=== PATIENT | male | born 1925 | race Caucasian/White ===

== ENCOUNTER 2017-10-19 09:31 | Inpatient (IN) | payer MEDICARE, OTHER ==
[2017-10-19] MEDS ORDERED: Lactated Ringers 1,000 ML IV SCH (10:30)
[2017-10-19] MEDS ORDERED: Take Home: Albuterol 6.7 GM Inhaler, 1 Inhaler Pack INH PRN (11:21)
[2017-10-19] MEDS ORDERED: Iopamidol 612 MG/ML 100 ML Bottle IVPUSH ONE (11:31)
[2017-10-19] MEDS: Oseltamivir 30 MG Cap PO SCH ×2 (12:03→19:51)
[2017-10-19] MEDS: Heparin Sodium 5,000 Units/ML Vial SUBCUT SCH ×2 (12:03→19:51)
[2017-10-19] MEDS: Sodium Chloride 0.9% 1,000 ML IV SCH (13:30)
[2017-10-19] MEDS: Levofloxacin/Dextrose 5%-Water 500 MG in Premix Bag 1 BAG IV SCH (13:30)
[2017-10-19] MEDS: Albuterol 0.083% 2.5 MG/3 ML Neb Soln NEB PRN ×2 (13:38→19:58)
--- NOTE | 2017-10-19 17:59 | HP ---
CHIEF COMPLAINT: Weakness with cough. HISTORY OF PRESENT ILLNESS: The patient is an 89-year-old male who presents to the clinic this morning, brought in by family. He has been having a sore throat, swollen glands on his neck. He woke up at 1:30 this morning with symptoms. His spouse is in the hospital with influenza A. to note, the patient was recently hospitalized at [facility] on 09/16/2017 to 09/19/2017 with bronchopneumonia. He has had problems with low potassium and weakness. He is also having worsening cognitive dysfunction. He had been treated at that time with Rocephin, Zithromax, not placed on steroids. He had been placed on Dulera when he was in the hospital as he normally is on Symbicort at home. He was given IV hydration, had gotten much better quite quickly. He was also having some problems with urination and forgetfulness. When he was seen recently in the clinic on 10/12/2017, we had increased his dose of Flomax. However, he only took 1 night as he did become a little bit more weaker and dizzier. The patient is somewhat of a vague historian. His is not able to accompany him, but daughter is present. MEDICATIONS: He is currently on Flomax 0.4 mg 2 pills a day, albuterol MDI 2 puffs every 4 hours as needed, allopurinol 300 mg 1 pill daily, Levaquin 100 mcg 1 pill a day, Symbicort 80/4.5 two puffs twice a day (he has been taking it more often) simvastatin 40 mg 1 pill a day, Plavix 75 mg 1 pill a day, lutein 20 mg 1 pill a day, Bilberry 60 mg capsules 1 pill a day, ferrous sulfate 325 one pill a day, multivitamin 1 pill a day, aspirin 81 mg 1 pill a day. ALLERGIES: None known. PAST MEDICAL HISTORY: He has had hypertension. He has mild intermittent asthma without complications. Peak flow meters have been around 280. He has had monoclonal gammopathy of undetermined significance. He has had coronary artery disease. Angiogram done in 2008. He had a stent to his LAD. RCA had IV ultrasound moderate disease. PTCA via drug-eluting stent in 2008 at [facility]. In September 2015, he had anemia mild, so his Plavix was stopped. On 12/25/2015, cardiology did resume his Plavix. He has had chronic kidney disease, panlobular emphysema, nonrheumatic mitral valve stenosis. Last echocardiogram on 08/24/2016, ejection fraction was 55%, mild diastolic dysfunction, mild mitral stenosis. He had cognitive dysfunction on 10/09/2016. He had vague answer difficulty remembering. On 10/12/2017, mini-mental status exam had 25/30 with no short-term memory recall. He has set up a head CT as well as ultrasound which is pending. He has had hypothyroidism and high cholesterol. He has had kidney stones 30 to 40 years ago, questionable uric acid stone. He has had some knee pain, injured in 2012. He has had balance problem noted since 2012. On 07/2016, he has declined physical therapy or use of a cane. He had a biceps tendon rupture 2013. He has had adenomatous colon polyps by flexible sigmoidoscopy back in 2004. He has had chronic diarrhea. He refuses further colonoscopies. He has been seen by Dr. Jean since 2009. He has had BPH. He has been on Flomax for years dose increased attempt on 09/2017 with side effects. He has had some macular degeneration. He has had a central retinal vein occlusion. He has had cataracts. He has had cold sores on his face. He has had gout. PAST SURGICAL HISTORY: He has had PTCA in 2008 with stent x1 of his RCA. He has had retinal vein occlusion surgery. He has had cataracts, left eye. He has had an inguinal hernia repair. He has had a septoplasty of his nose. FAMILY MEDICAL HISTORY: Mother has had stomach cancer. Father had hypertension, encephalitis, and CVA. Sister has had asthma, respiratory problems. SOCIAL HISTORY: He is . 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 He had been a former smoker. He quit in 1975, prior to that he had smoked a pack a day. I am not certain what his pack-year history use. Alcohol: He does not consume alcohol. REVIEW OF SYSTEMS: He has had a little bit of weakness. He did have some nausea after coughing. Does have a cough that is chronic form. He is slightly forgetful. Denies abdominal pain. He has had diarrhea in the past. He has had problems with having to void frequently at night. His legs feel weak. Skin no rashes. Weight did go down 5 lbs from last week. Hard of hearing. Sore lymph glands on neck. No allergies. Mood is good. No bruising. OBJECTIVE: VITAL SIGNS: Show that his weight is 168 pounds, down 5 pounds from a week ago. Blood pressure is 114/50, temperature is a 100.7, pulse is 98, sats are 93%. GENERAL: The patient does appear somewhat weak, unsteady when he does transfers from the chair to the table. His voice is raspy. HEENT: Tympanic membranes are normal bilaterally. Pharynx reveals slight dryness noted to mucous membranes questioning minimal erythema of his uvula and soft palate. Pupils are equal and react to light. NECK: Some tender submental lymphadenopathy, not very impressive. HEART: Regular rate and rhythm. LUNGS: Diminished breath sounds with occasional crackles on the right base. ABDOMEN: Bowel sounds are present. Soft, no hepatosplenomegaly. EXTREMITIES: Slender, thin. The patient walks slightly stooped. PSYCHIATRIC: Patient is slightly forgetful, somewhat vague with history. NEUROLOGICAL: Needs assist to get on exam table due to weaness. Reflexes were 1 + symmetric. SKIN: No rashes. IMPRESSION: 1. Pneumonitis. Expect possibly influenza A pneumonitis due to exposure from with recent acute acquired pneumonia. 2. Chronic obstructive pulmonary disease. 3. Cognitive dysfunction. 4. Dehydration. 5. Benign prostatic hyperplasia. PLAN: The patient will be admitted to acute care as he lives over 30 miles from the hospital and would be living home alone. He will have IV resuscitation of fluids. We will place him on medically on a Tamiflu because of exposure to his and probable influenza A pneumonia. We will check lab work on patient. We will hold his Plavix and aspirin, and we will place him on heparin for DVT prophylaxis. LABORATORY DATA: His lab work came back after he had been hospitalized, which showed his influenza A was negative. White blood cell count 8.9, hemoglobin 13.6, MCV 101.7, platelets 245, with 73 segs, 3 bands, 18 lymphocytes, 5 monocytes, 1 blasts, 1% anisocytosis. Blood gases on room air showed pH 7.42, pCO2 36, PO2 of 71, bicarb 25, and sats are 95% on room air. Sodium was 139, potassium 3.6, creatinine 1.4, BUN 19, GFR 48, glucose 164. AST 29, ALT 42, alkaline phosphatase 86. CRP 3.8, albumin is 3.3. Even though it was influenza A negative, we will still empirically treat him because his was positive. Also, we will resume Zithromax. We will place him on some duo nebs as well to help with lung function. The patient is codelevel 2 status but do not resuscitate, do not intubate. His chest x-ray did not show any impressive infiltrates. However, he had a fair amount air noted throughout his colon, so possibly an ileus, so he will be set up for a CT scan of his abdomen as well. We will order actually some Levaquin for him. GM10/19/2017 12:50:07 MODL: 10/19/2017 17:41:10 /[id number]
[2017-10-19] MEDS: SYMBICORT INH SCH (19:52)
[2017-10-19] MEDS ORDERED: Formoterol/Mometasone 100-5 MCG 8.8 GM Inhaler IH SCH (20:00)
[2017-10-19] MEDS: diphenhydrAMINE 25 MG Cap PO PRN (20:40)
[2017-10-20] MEDS: Sodium Chloride 0.9% 1,000 ML IV SCH ×3 (00:44→21:42)
[2017-10-20] MEDS: Levothyroxine 100 MCG Tab PO SCH (06:43)
[2017-10-20] MEDS: SYMBICORT INH SCH ×2 (06:43→21:03)
[2017-10-20] MEDS: Albuterol 0.083% 2.5 MG/3 ML Neb Soln NEB PRN ×3 (07:20→21:03)
[2017-10-20] MEDS: Oseltamivir 30 MG Cap PO SCH (07:26)
[2017-10-20] MEDS: Allopurinol 300 MG Tab PO SCH (07:26)
[2017-10-20] MEDS: Ferrous Sulfate 325 MG Tab PO SCH (07:26)
[2017-10-20] MEDS: Tamsulosin 0.4 MG Cap.ER PO SCH (07:27)
[2017-10-20] MEDS: Heparin Sodium 5,000 Units/ML Vial SUBCUT SCH ×2 (07:27→21:02)
[2017-10-20] MEDS ORDERED: Magnesium Hydroxide 400 MG/5 ML Susp 30 ML Cup PO PRN (08:41)
[2017-10-20] MEDS: Metoprolol Succinate 25 MG Tab.ER PO SCH (09:32)
[2017-10-20] MEDS: Docusate Sodium 100 MG Cap PO SCH (09:33)
--- NOTE | 2017-10-20 10:12 | PN ---
Progress Note for URIEL FLORES Date: 10/20/2017 Room #: VM.219 SUBJECTIVE: The patient is feeling a little bit better today, a little bit more strength. He says he is breathing. He started to cough a little bit more today, but he does not feel short of breath. He comments that his bowels have not worked for the past few days at home. He is eager to start to work with physical therapy. OBJECTIVE: Vital Signs: His temperature has been afebrile since admission, it is 36.9 this morning. His pulse is 80, blood pressure is 155/100, respiratory rate is 22, sats are 95% on 1 L. SKIN: Casar, warm, and dry. LUNGS: Reveal inspiratory crackles on bases bilaterally. HEART: Regular rate and rhythm. ABDOMEN: Slightly distended. Bowel sounds are present. It is soft. LOWER EXTREMITIES: No edema. LABORATORY DATA: His lab today shows his white blood cell count stable at 6.2, hemoglobin 13.2, platelets are 226 with 12% monocytes noted. Sodium is 140, potassium 3.8, creatinine has improved to 1.3, GFR has improved to 52, BUN is 17. His CRP on admission was 3.8, elevated now. Today it has gone up to 6.6. Urinalysis was checked last evening and it was normal. IMPRESSION: 1. Pneumonia. Either recurrence of community-acquired pneumonia. 2. Exposure to influenza A that his is hospitalized currently with it. The patient tested negative. 3. Ileus, most likely secondary to influenza, however, rule out obstructing lesion. 4. Monoclonal gammopathy of undetermined significance. 5. Chronic obstructive pulmonary disease. 6. Cognitive dysfunction. PLAN: We will continue IV fluids on the patient, however, we will cut down on the rate. We will have Physical Therapy work with him for strengthening. We will give him some milk of magnesia to help stimulate his bowels as well as place him on Colace daily. To note, his blood pressure is slightly elevated right now. It is not clear if he had been missing his pills at home for a few days. Actually to note, the patient is not currently on any medicines for hypertension. So if his blood pressure would stay elevated, then he may need to be placed on medications for blood pressure. The patient has had a previous history of coronary artery disease and so he should actually be on a beta- joann to help prevent with angina ever though he has COPD. He has asthma, so we will add cardioselective beta joann to help with heart function of carvedilol. GM10/20/2017 08:48:57 MODL: 10/20/2017 09:16:30 /[id number]
[2017-10-20] MEDS: Levofloxacin/Dextrose 5%-Water 500 MG in Premix Bag 1 BAG IV SCH (12:20)
[2017-10-20] MEDS: diphenhydrAMINE 25 MG Cap PO PRN (21:42)
[2017-10-21] MEDS: Levothyroxine 100 MCG Tab PO SCH (07:04)
[2017-10-21] MEDS: SYMBICORT INH SCH (07:09)
[2017-10-21] MEDS: Albuterol 0.083% 2.5 MG/3 ML Neb Soln NEB PRN ×2 (07:40→11:15)
[2017-10-21] MEDS: Sodium Chloride 0.9% 1,000 ML IV SCH (07:58)
[2017-10-21] MEDS: Ferrous Sulfate 325 MG Tab PO SCH (07:59)
[2017-10-21] MEDS: Tamsulosin 0.4 MG Cap.ER PO SCH (07:59)
[2017-10-21] MEDS: Docusate Sodium 100 MG Cap PO SCH (07:59)
[2017-10-21] MEDS: Metoprolol Succinate 25 MG Tab.ER PO SCH (07:59)
[2017-10-21] MEDS: Heparin Sodium 5,000 Units/ML Vial SUBCUT SCH ×2 (08:00→22:42)
[2017-10-21] MEDS: Allopurinol 300 MG Tab PO SCH (08:00)
[2017-10-21] MEDS: Oseltamivir 30 MG Cap PO SCH (08:00)
--- NOTE | 2017-10-21 09:17 | PN ---
Progress Note for URIEL FLORES Date: 10/21/2017 Room #: VM.219 SUBJECTIVE: The patient is weak, but feeling a little bit better. He still does have a little bit of a cough. His bowels were active yesterday. He is otherwise pleasantly forgetful. He did have a CT scan done yesterday, which has showed cholelithiasis, mild thickening of his abdominal wall, but no obstructive lesions present. Yesterday, he had been started on metoprolol, because his blood pressure had been running higher. OBJECTIVE: Vital Signs: His blood pressure today is 176/71, but had been yesterday evening in 146/84; pulse is 82, respiratory rate is 18, and saturations 94% on room air. General: He is alert, conversive. Heart: Regular rate and rhythm. Lungs: Have some inspiratory crackles on bases. Abdomen: Bowel sounds are present. Soft, nontender. Extremities: Lower extremities, no edema. LABORATORY DATA: His proBNP was done, it was 1723. We do not have a baseline on him. His TSH was normal at 3.171. Urine tested yesterday was normal. Sputum cultures growing gram-negative bacilli. IMPRESSION: 1. Pneumonia. 2. Chronic obstructive pulmonary disease. 3. Coronary artery disease. 4. Hypertension. 5. Weakness, improving. 6. Cholelithiasis. 7. Cognitive dysfunction. PLAN: We will switch his Levaquin to oral today. We will saline lock once his current IV fluids are in. To note, his chest x-ray appeared stable today as well as his abdominal flat and upright x-ray shows a fair amount air throughout colon, felt to be more of an ileus as he is eating and nontender. GM10/21/2017 08:50:43 MODL: 10/21/2017 09:10:19 /[id number]
[2017-10-21] MEDS: Levofloxacin 500 MG Tab PO SCH (09:30)
[2017-10-21] MEDS ORDERED: ALPRAZolam 0.25 MG Tab PO PRN (12:40)
[2017-10-21] MEDS: Budesonide 0.25 MG/2 ML Neb Susp NEB SCH (22:41)
[2017-10-21] MEDS: diphenhydrAMINE 25 MG Cap PO PRN (22:42)
[2017-10-21] MEDS: Arformoterol 15 MCG/2 ML Neb Soln NEB SCH (22:42)
[2017-10-21] MEDS: Sodium Chloride 0.9% 10 ML Syringe FLUSH PRN (22:45)
[2017-10-22] MEDS: Levothyroxine 100 MCG Tab PO SCH (06:20)
[2017-10-22] MEDS: Allopurinol 300 MG Tab PO SCH (07:56)
[2017-10-22] MEDS: Docusate Sodium 100 MG Cap PO SCH (07:56)
[2017-10-22] MEDS: Ferrous Sulfate 325 MG Tab PO SCH (07:56)
[2017-10-22] MEDS: Tamsulosin 0.4 MG Cap.ER PO SCH (07:56)
[2017-10-22] MEDS: Heparin Sodium 5,000 Units/ML Vial SUBCUT SCH (07:57)
[2017-10-22] MEDS: Oseltamivir 30 MG Cap PO SCH (07:57)
[2017-10-22] MEDS: Metoprolol Succinate 25 MG Tab.ER PO SCH (07:57)
[2017-10-22] MEDS: Budesonide 0.25 MG/2 ML Neb Susp NEB SCH (08:04)
[2017-10-22] MEDS: Arformoterol 15 MCG/2 ML Neb Soln NEB SCH (08:04)
[2017-10-22] MEDS: Levofloxacin 500 MG Tab PO SCH (08:42)
[2017-10-22] MEDS: Sodium Chloride 0.9% 10 ML Syringe FLUSH PRN (08:43)
--- NOTE | 2017-10-22 09:20 | PN ---
Progress Note for URIEL FLORES Date: 10/22/2017 Room #: VM.219 SUBJECTIVE: He is feeling better. He still does have a little bit of a cough. He does feel that the nebulizers are working better. Nurses report that also those work better as well. OBJECTIVE: VITAL SIGNS: His temperature is 36.6, blood pressure is 138/84, pulse is 77, respiratory rate 22, sats are 93 on room air. GENERAL: He appears alert and stronger. HEART: Regular rate and rhythm. LUNGS: Have some crackles on the left base, this is more than the right. ABDOMEN: Soft. EXTREMITIES: No edema. LABORATORY DATA: His white blood cell count is same at 6.2, hemoglobin 13.0. Sodium is 141, potassium 3.8, creatinine 1.2, and the GFR is 40. LFTs are normal. His albumin is just slightly diminished at 2.7. His chest x-ray yesterday had shown no infiltrate. The abdominal x-ray showed significant bowel distention, again seen here as I look at the x-ray. So it did show some mild progressive basilar infiltrate present. No effusions noted. His sputum has gram-negative coccobacilli, which has been sent away for identification. IMPRESSION: 1. Community-acquired pneumonia. 2. Exposure to influenza A, he was ruled negative. 3. Chronic obstructive pulmonary disease exacerbation. 4. Weakness. 5. Mild cognitive dysfunction. 6. Mild anxiety. PLAN: Because the Xanax did help him at home, we will also send him home with some Xanax. We do feel that the patient is able to go home today as he will feel more comfortable being around his . He has been on oral antibiotics. We will send him home on DuoNeb and we will have patient return to see me in a week's time. To note, his Plavix and aspirin have been held as he was placed on heparin for DVT prophylaxis. He will be able to resume that when he goes home. GM10/22/2017 08:44:22 MODL: 10/22/2017 09:15:43 /[id number]
--- NOTE | 2017-10-22 10:15 | DISCH ---
PRIMARY DIAGNOSES: 1. Community-acquired pneumonia, gram negative coccobacilli, identity is still pending. 2. Exacerbation of chronic obstructive pulmonary disease with exposure to influenza A. 3. Weakness. 4. Cognitive dysfunction. 5. Hypertension. 6. History of coronary artery disease. 7. Benign prostatic hyperplasia. 8. Ileus. SUMMARY OF HISTORY AND PHYSICAL: The patient is an 89-year-old male who presented to the clinic, feeling weak, coughing. His had been admitted with influenza A, so is concerned that he may have influenza A. He also has been noted to have some increased forgetfulness. He had been hospitalized about a month ago with pneumonia and had been treated with Rocephin and Zithromax at that time. The patient is on Symbicort normally at home. However, his use of inhalers is somewhat questionable as well as albuterol. Recently, his Flomax had been increased because of problems with nocturia, but that possibly may have made him more confused and weaker. To note, the patient is somewhat anxious as well. PHYSICAL EXAMINATION: Vital Signs: On admission, his weight had been down 5 pounds from a month ago at 168, blood pressure is 114/50, temperature is a 100.7, pulse 98, sats are 93%. Lungs: Had diminished breath sounds on bases with occasional crackles at right base. Abdomen: Bowel sounds present, soft, nontender. Neurologic: He is pleasantly confused. LABORATORY DATA: That came back from the hospital shows white blood cell count 8.9, hemoglobin 13.6, MCV 101.7, platelets 245, with 73 segs, 3 bands, 18 lymphocytes. Blood gases showed pH 7.42, pCO2 36, PO2 71, bicarb 25, sats 95%. Sodium 139, potassium 3.6, creatinine 1.4, BUN 19, GFR 48, glucose 164. ALT 29, AST 42, alkaline phosphatase 86, CRP 3.8, albumin 3.3. SUMMARY OF HOSPITAL COURSE: The patient was checked for influenza A, it was negative, so he was switched from Tamiflu twice a day to once a day. He was placed on Levaquin IV. Also, he was switched to nebulizers of Brovana and Pulmicort, which he seemed to take better than his Symbicort. His abdomen in flat and upright did show much air present, so then he had undergone a CT scan of his abdomen which showed cholelithiasis which is asymptomatic, mild thickening of wall of colon, but otherwise no masses noted. He still continued to cough. He received physical therapy for strengthening. The patient had followup chest x-ray which did show some basilar infiltrate. By 10/22/2017, his white blood cell count was 6.2, hemoglobin 13.0, sodium 141, potassium 3.8, creatinine 1.2, BUN 19, GFR 40. LFTs were normal. Albumin did drop to 2.7. To note his proBNP done on 10/21/2017 was 1729. He did have a CRP on 10/20/2017, which was 6.6. His thyroid was checked and was normal at 3.17. Urinalysis came back normal. By 10/22/2017, he was doing much better. He was given some Xanax to help him with sleep. To note, the patient's blood pressure was elevated while hospitalized. It was up to 174, so he was started on metoprolol as he does have a history of coronary artery disease. His blood pressure on the day of discharge was 138/84. MEDICATIONS: At the time of discharge will be levothyroxine 100 mcg 1 pill a day, allopurinol 300 mg 1 pill daily, Zocor 40 mg 1 pill at bedtime, Flomax 0.4 mg 1 pill daily, Plavix 75 mg 1 pill daily, albuterol MDI 2 puffs q.4 hours p.r.n., aspirin 81 mg 1 pill a day, multivitamin 1 pill a day, ferrous sulfate 650 daily, lutein 20 mg 1 pill daily, bilberry extract 1 pill a day, alprazolam 0.25 mg 1 p.o. b.i.d. p.r.n., Brovana 15 mcg b.i.d., Pulmicort 0.25 mg/2 mL b.i.d., docusate 100 mg 1 pill daily, Levaquin 500 mg 1 pill daily, metoprolol- XL 25 mg half pill daily, Tamiflu 30 mg 1 pill daily for 4 days. The patient did have a [id number] evaluation today on 10/22/2017. We do feel he would benefit by Home Health as he is homebound. He needs assessment of his respiratory function. [place] patient [place] [address] from the hospital. He would need to depend on family members to bring him into the hospital as he is too weak to drive and does have forgetfulness. I will be following his Home Health progress. The patient is do not resuscitate, do not intubate status at discharge. When the patient is seen in the clinic, he will need to have a followup chest x-ray, PA and lateral for pneumonia as well as his CBC and comprehensive metabolic profile. GM10/22/2017 09:03:04 MODL: 10/22/2017 10:08:16 /[id number]
== END 2017-10-22 14:30 | disposition home health service (06) | DRG 178 ==
LOC: VM.MS 09:35
PROVIDERS: ADMIT Family Medicine; ATTEND Family Medicine
DX: J15.6 Pneumonia due to other Gram-negative bacteria (principal); K56.7 Ileus, unspecified; J44.0 Chronic obstructive pulmonary disease with (acute) lower respiratory infection; J44.1 Chronic obstructive pulmonary disease with (acute) exacerbation; I10 Essential (primary) hypertension; J45.20 Mild intermittent asthma, uncomplicated; I25.10 Atherosclerotic heart disease of native coronary artery without angina pectoris; D47.2 Monoclonal gammopathy; E03.9 Hypothyroidism, unspecified; E78.00 Pure hypercholesterolemia, unspecified; N40.0 Benign prostatic hyperplasia without lower urinary tract symptoms; E86.0 Dehydration; K80.20 Calculus of gallbladder without cholecystitis without obstruction; G31.84 Mild cognitive impairment of uncertain or unknown etiology; F41.9 Anxiety disorder, unspecified; Z95.5 Presence of coronary angioplasty implant and graft; Z79.899 Other long term (current) drug therapy; Z87.891 Personal history of nicotine dependence; Z79.51 Long term (current) use of inhaled steroids; Z79.02 Long term (current) use of antithrombotics/antiplatelets; Z79.82 Long term (current) use of aspirin
CPT/HCPCS: 36415; 36600; 71046; 74019; 74177; 80048; 80053; 81001; 82803; 83605; 83880; 84443; 85025; 86140; 87040; 87070; 87077; 87205; 87804; 93005; 94640; 94760; 97161-GP; 97530-GP; A9270-GY; J1644; J1956; J7030; J7050; J7120; J7620-GY; J7634; Q9967